=== PATIENT | male | born 1975 | race Caucasian/White ===

== ENCOUNTER → 2023-07-22 10:54 | Outpatient (CLI) | payer OTHER, SELFPAY ==
--- NOTE | 2023-07-22 10:56 | DI.RAD.S_ITS ---
PROCEDURE: XR FOREARM RT 2V INDICATIONS: fall TECHNIQUE: 2 views of the forearm were acquired. COMPARISON: None. FINDINGS: Bones: Under cortical regularity involving the radial neck consistent fracture Soft tissues: No suspicious soft tissue calcifications or masses. IMPRESSION: Nondisplaced radial neck fracture Approved by: Simeon Laura M.D. on 07/22/2023 at 11:02
--- NOTE | 2023-07-22 10:56 | DI.RAD.S_ITS ---
PROCEDURE: XR WRIST RT MIN 3V INDICATIONS: fall TECHNIQUE: 4 views of the wrist were acquired. COMPARISON: None. FINDINGS: Bones: No fractures or dislocations. No suspicious bony lesions. Soft tissues: No suspicious soft tissue calcifications. IMPRESSION: No acute bony abnormality. Approved by: Simeon Laura M.D. on 07/22/2023 at 11:07
--- NOTE | 2023-07-22 10:56 | DI.RAD.S_ITS ---
PROCEDURE: XR ELBOW RT MIN 3V INDICATIONS: fall TECHNIQUE: 3 views of the elbow were acquired. COMPARISON: None. FINDINGS: Bones: Cortical regularity involving radial neck consistent with fracture Soft tissues: No elbow joint effusion. No suspicious soft tissue calcifications. IMPRESSION: Radial neck fracture, nondisplaced Approved by: Simeon Laura M.D. on 07/22/2023 at 11:03
--- NOTE | 2023-07-22 10:56 | DI.RAD.S_ITS ---
PROCEDURE: XR HAND RT MIN 3V INDICATIONS: fall TECHNIQUE: 3 views of the hand(s) acquired. COMPARISON: None. FINDINGS: Bones: No fractures or dislocations. Carpal bones are normally aligned. No suspicious bony lesions. Soft tissues: No suspicious soft tissue calcifications. IMPRESSION: No acute bony abnormality. Approved by: Simeon Laura M.D. on 07/22/2023 at 11:05
== END ==
PROVIDERS: Referring Provider Physician Assistant Medical; Visit Provider Physician Assistant Medical
DX: S52.134A Nondisplaced fracture of neck of right radius, initial encounter for closed fracture (principal); M79.601 Pain in right arm; W19.XXXA Unspecified fall, initial encounter
CPT/HCPCS: 73080; 73090; 73110; 73130